=== PATIENT | female | born 1990 | race Asian ===

== ENCOUNTER 2023-08-14 15:59 | Emergency (ER) | payer OTHER ==
[~2023-08-14] VITALS: Ht 165.1 cm; Wt 71.7 kg
[2023-08-14 16:45] LABS: URINE PREG TEST NEGATIVE (NEGATIVE)
[2023-08-14 19:13] VITALS: BP 158/95; TEMP 97.9; O2SAT 99
[2023-08-14] MEDS ORDERED: BACTRIM 160MG/800MG DS TAB PO ONE (20:20)
[2023-08-14] MEDS ORDERED: SULF1TAB23 PO (20:24)
== END 2023-08-14 20:33 | disposition home or self-care (01) ==
LOC: M ED 15:59
DX: N30.00 Acute cystitis without hematuria (principal); Z87.448 Personal history of other diseases of urinary system